=== PATIENT | female | born 1995 | race Hispanic/Latino ===

== ENCOUNTER 2018-03-31 11:03 | Emergency (ER) | payer MEDICAID, OTHER ==
[2018-03-31 11:08] VITALS: BMI 39.3
[2018-03-31 11:17] VITALS: O2SAT 100
[2018-03-31] MEDS ORDERED: Sodium Chloride 0.9% 1,000 ML IV STA (11:18)
[2018-03-31 11:33] LABS: BASO # 0.03 K/mm3 (0.0-2.0); BASO % 0.2 % (0.0-3.0); EOS % 0.2 % (1.5-5.0); GRAN # 12.01 (1.4-6.5); GRAN % 85.1 % (50.0-68.0); HEMOGLOBIN 14.2 g/dL (12.0-16.0); LYMPH # 1.5 (1.2-3.4); LYMPH % 10.5 % (22.0-35.0); MEAN CELL VOLUME 75.8 fl (80.0-105.0); MEAN CORPUSCULAR HEMOGLOBIN 24.9 pg (25.0-35.0); MEAN CORPUSCULAR HGB CONC 32.8 g/dl (31.0-37.0); MEAN PLATELET VOLUME 10.3 fl (7.0-11.0); MONO # 0.6 (0.1-0.6); RBC 5.71 10^6/uL (3.5-6.1); RED CELL DISTRIBUTION WIDTH 15.8 % (11.5-14.5); WHITE BLOOD COUNT 14.1 10^3/ul (4.5-11.0)
[2018-03-31 11:43] LABS: INR 1.09 (0.93-1.08); PARTIAL THROMBOPLASTIN TIME 24.5 Seconds (25.1-36.5); PROTHROMBIN TIME 12.5 SECONDS (9.4-12.5)
--- NOTE | 2018-03-31 11:44 | ED PDOC ---
Arrival/HPI - General Chief Complaint: GI Problem Time Seen by Provider: 03/31/18 11:18 Historian: Patient - History of Present Illness Narrative History of Present Illness (Text): 03/31/18 11:44 22yo female with no pmhx bib EMS for complaint of nausea/vomiting and diarrhea since this morning. She reports multiple episodes of nonbloody/billious vomiting since this morning. Denies fever, chills, abdominal pain, hematemesis, hematochezia, chest pain, back pain, urinary symptoms, sick contact, travel. Past Medical History - Provider Review Nursing Documentation Reviewed: Yes - Psychiatric Hx Psychophysiologic Disorder: No Hx Substance Use: No Family/Social History - Physician Review Nursing Documentation Reviewed: Yes Family/Social History: Unknown Family HX Smoking Status: Never Smoked Hx Alcohol Use: No Hx Substance Use: No Allergies/Home Meds Allergies/Adverse Reactions: Allergies No Known Allergies Allergy (Verified 03/31/18 11:14) Review of Systems - Physician Review All systems were reviewed & negative as marked: Yes - Review of Systems Constitutional: Normal Eyes: Normal ENT: Normal Respiratory: Normal Cardiovascular: Normal Gastrointestinal: Diarrhea, Nausea, Vomiting. absent: Abdominal Pain, Constipation, Hematochezia, Hematemesis Genitourinary Female: Normal Musculoskeletal: Normal Skin: Normal Neurological: Normal Endocrine: Normal Hemo/Lymphatic: Normal Psychiatric: Normal Physical Exam Vital Signs Reviewed: Yes Vital Signs Temp Pulse Resp BP Pulse Ox 03/31/18 14:19 98 F 89 18 112/72 100 03/31/18 14:16 98 F 89 18 112/72 100 03/31/18 11:14 98.2 F 107 H 20 98/50 L 100 Temperature: Afebrile Blood Pressure: Normal Pulse: Regular Respiratory Rate: Normal Appearance: Positive for: Well-Appearing, Non-Toxic, Comfortable Pain Distress: None Mental Status: Positive for: Alert and Oriented X 3 - Systems Exam Head: Present: Atraumatic, Normocephalic Pupils: Present: PERRL Extroacular Muscles: Present: EOMI Conjunctiva: Present: Normal Mouth: Present: Moist Mucous Membranes Neck: Present: Normal Range of Motion Respiratory/Chest: Present: Clear to Auscultation, Good Air Exchange. No: Respiratory Distress, Accessory Muscle Use Cardiovascular: Present: Regular Rate and Rhythm, Normal S1, S2. No: Murmurs Abdomen: Present: Other (Soft). No: Tenderness, Distention, Peritoneal Signs, Rebound, Guarding, McBurney's Point Tender, Rovsing's Sign Present Back: Present: Normal Inspection Upper Extremity: Present: Normal Inspection. No: Cyanosis, Edema Lower Extremity: Present: Normal Inspection. No: Edema Neurological: Present: GCS=15, CN II-XII Intact, Speech Normal Skin: Present: Warm, Dry, Normal Color. No: Rashes Psychiatric: Present: Alert, Oriented x 3, Normal Insight, Normal Concentration Medical Decision Making ED Course and Treatment: 03/31/18 20:07 Pt presented for stated history. She was comfortable in ED. Her abdominal exam was benign in ED. Leukocytosis was noted, which is likely viral. Pt was able to tolerate PO challenge. On re evaluation she was smiling, stated she feels much better. They is no indication for imaging at this time. Pt was advised to follow BRAT diet and follow up with her PMD. Zofran and pepcid rx was given to the pt. - Lab Interpretations Lab Results: 03/31/18 11:29 03/31/18 11:29 Lab Results 03/31/18 13:43: Urine Color Yellow, Urine Appearance Clear, Urine pH 6.0, Ur Specific [place] 1.020, Urine Protein Negative, Urine Glucose (UA) Negative, Urine Ketones Negative, Urine Blood Negative, Urine Nitrate Negative, Urine Bilirubin Negative, Urine Urobilinogen 0.2, Ur Leukocyte Esterase Negative 03/31/18 11:29: Beta HCG, Quant < 2.39 03/31/18 11:29: Sodium 144, Potassium 4.2, Chloride 108 H, Carbon Dioxide 20 L, Anion Gap 21 H, BUN 14, Creatinine 0.7, Est GFR ( Amer) > 60, Est GFR ( Non-Af Amer) > 60, Random Glucose 132 H, Calcium 10.0, Magnesium 1.9, Total Bilirubin 0.3, AST 28, ALT 31, Alkaline Phosphatase 102, Total Protein 9.0 H, Albumin 5.0 H, Globulin 4.0, Albumin/Globulin Ratio 1.3, Lipase 56 03/31/18 11:29: PT 12.5, INR 1.09 H, APTT 24.5 L 03/31/18 11:29: WBC 14.1 H, RBC 5.71, Hgb 14.2, Hct 43.3, MCV 75.8 L, MCH 24.9 L , MCHC 32.8, RDW 15.8 H, Plt Count 247, MPV 10.3, Gran % 85.1 H, Lymph % (Auto) 10.5 L, [place] % (Auto) 4.0, Eos % (Auto) 0.2 L, Baso % (Auto) 0.2, Gran # 12.01 H , Lymph # (Auto) 1.5, [place] # (Auto) 0.6, Eos # (Auto) 0.0, Baso # (Auto) 0.03 - Medication Orders Current Medication Orders: Discontinued Medications Famotidine (Pepcid) 20 mg IVP STAT STA Stop: 03/31/18 11:19 Last Admin: 03/31/18 11:32 Dose: 20 mg IVP Administration Document 03/31/18 11:32 HI (Rec: 03/31/18 11:32 [id number] Charges for Administration # of IVP Administrations 1 Sodium Chloride (Sodium Chloride 0.9%) 1,000 mls @ 1,000 mls/hr IV .Q1H STA Stop: 03/31/18 12:17 Last Admin: 03/31/18 11:32 Dose: 1,000 mls/hr eMAR Start Stop Document 03/31/18 11:32 HI (Rec: 03/31/18 11:33 [id number][facility] Intravenous Solution Start Date 03/31/18 Start Time 11:33 Ondansetron HCl (Zofran Inj) 4 mg IVP STAT STA Stop: 03/31/18 11:19 Last Admin: 03/31/18 11:32 Dose: 4 mg IVP Administration Document 03/31/18 11:32 HI (Rec: 03/31/18 11:32 [id number][facility] Charges for Administration # of IVP Administrations 1 Disposition/Present on Arrival - Present on Arrival Any Indicators Present on Arrival: No History of DVT/PE: No History of Uncontrolled Diabetes: No Urinary Catheter: No History of Decub. Ulcer: No History Surgical Site Infection Following: None - Disposition Have Diagnosis and Disposition been Completed?: Yes Diagnosis: Nausea vomiting and diarrhea Disposition: HOME/ ROUTINE Disposition Time: 13:55 Patient Plan: Discharge Condition: STABLE Discharge Instructions (ExitCare): Nausea and Vomiting, Adult Additional Instructions: Follow BRAT diet (banana, plain rice, apple sauce, crackers,) for a day Follow up with your Doctor Return to ED for any new or worsening symptoms Prescriptions: Famotidine [Pepcid] 20 mg PO DAILY #15 tab Ondansetron ODT [Zofran ODT] 4 mg PO Q6 #6 odt Referrals: Germain Del Toro MD [Primary Care Provider] - Follow up with primary Forms: [employer] [place] (Bengali)
[2018-03-31 11:46] LABS: ALB/GLOB RATIO 1.3 (1.1-1.8); ALT/SGPT 31 U/L (7-56); AST/SGOT 28 U/L (14-36); BLOOD UREA NITROGEN 14 mg/dL (7-21); GFR AFRICAN-AMERICAN > 60; GFR NON-AFRICAN AMERICAN > 60; LIPASE 56 U/L (23-300)
[2018-03-31 13:50] LABS: URINE APPEARANCE CLEAR (CLEAR); URINE BILIRUBIN NEGATIVE (NEGATIVE); URINE BLOOD NEGATIVE (NEGATIVE); URINE COLOR YELLOW (YELLOW); URINE GLUCOSE (UA) NEGATIVE (NEGATIVE); URINE LEUKOCYTE ESTERASE NEGATIVE Leu/uL (NEGATIVE); URINE PROTEIN NEGATIVE mg/dL (<30 mg/dL); URINE UROBILINOGEN 0.2 E.U./dL (<1 E.U./dL)
[2018-03-31 14:19] VITALS: BP 112/72; PULSE 89; RESP 18; TEMP 98
== END 2018-03-31 14:19 | disposition home or self-care (01) ==
LOC: ED 11:03
DX: R11.2 Nausea with vomiting, unspecified (principal); R19.7 Diarrhea, unspecified
CPT/HCPCS: 80053; 81003; 83690; 83735; 84702; 85025; 85610; 85730; 96374; 96375; 99284; J2405; J7030